=== PATIENT | female | born 2000 | race American Indian/Alaskan Native ===

== ENCOUNTER 2021-06-08 07:56 | Emergency (ER) | payer SELFPAY ==
[2021-06-08] MEDS ORDERED: ACETAMINOPHEN 500 MG TAB PO ONE (09:22)
[2021-06-08] MEDS ORDERED: BENZONATATE 100 MG CAP PO ONE (09:22)
--- NOTE | 2021-06-08 09:25 | Emergency Department Report ---
ED General Adult HPI - General Chief complaint: Dyspnea/Respdistress Stated complaint: COUGH/BACK PAIN Time Seen by Provider: 06/08/21 09:18 Source: patient Mode of arrival: Ambulatory Limitations: No Limitations - History of Present Illness Initial comments: Patient presents secondary to respiratory symptoms. For 4 days, she has had a cough. Cough has been producing a clearish to yellowish phlegm. This morning at 4 AM, she coughed up some blood-tinged sputum. That was the first time she noticed blood in the sputum. Patient has had fevers and chills. She has had muscle aches and body aches. She states that her chest and ribs are sore from coughing. There has been no known sick contact. She had gotten a coronavirus test done yesterday and is waiting on that result. She did get a coronavirus vaccine. She did not get an influenza vaccine. Patient has had no travel out of the country lately. She has not been on antibiotics. Her concern was primarily for the hemoptysis so she came here for evaluation. Severity scale (0 -10): 10 - Related Data Previous Rx's Medication Instructions Recorded Last Taken Type Albuterol Sulfate [Proventil Hfa] 2 puff IH 4XD #1 inh 06/08/21 Unknown Rx Benzonatate [Tessalon Perles] 100 mg PO Q8HR #21 cap 06/08/21 Unknown Rx Ibuprofen [Motrin] 600 mg PO Q8H PRN #20 tablet 06/08/21 Unknown Rx Allergies Allergy/AdvReac Type Severity Reaction Status Date / Time No Known Allergies Allergy Unverified 06/08/21 08:54 ED Review of Systems ROS: Stated complaint: COUGH/BACK PAIN Other details as noted in HPI Comment: All other systems reviewed and negative Constitutional: fever Eyes: denies: eye pain ENT: denies: throat pain Respiratory: see HPI Cardiovascular: as per HPI Endocrine: denies: unexplained weight loss Gastrointestinal: denies: hematemesis Genitourinary: denies: hematuria Musculoskeletal: as per HPI Skin: denies: rash Neurological: headache (With coughing) Hematological/Lymphatic: denies: easy bruising ED Past Medical Hx - Past Medical History Previous Medical History?: No - Family History Family history: no significant - Medications Home Medications: Home Medications Medication Instructions Recorded Confirmed Last Taken Type Albuterol Sulfate [Proventil Hfa] 2 puff IH 4XD #1 inh 06/08/21 Unknown Rx Benzonatate [Tessalon Perles] 100 mg PO Q8HR #21 cap 06/08/21 Unknown Rx Ibuprofen [Motrin] 600 mg PO Q8H PRN #20 tablet 06/08/21 Unknown Rx ED Physical Exam - General Limitations: No Limitations, Other (Pulse ox noted and normal) General appearance: alert, in no apparent distress, other (Nontoxic in appearance) - Head Head exam: Present: atraumatic, normocephalic - Eye Eye exam: Present: normal appearance, PERRL, EOMI. Absent: scleral icterus - ENT ENT exam: Present: normal orophraynx, normal external ear exam - Neck Neck exam: Present: normal inspection. Absent: meningismus - Respiratory Respiratory exam: Present: normal lung sounds bilaterally. Absent: respiratory distress - Cardiovascular Cardiovascular Exam: Present: normal rhythm, tachycardia - GI/Abdominal GI/Abdominal exam: Present: soft. Absent: distended, tenderness - Extremities Exam Extremities exam: Present: normal capillary refill. Absent: calf tenderness - Back Exam Back exam: Absent: CVA tenderness (R), CVA tenderness (L) - Neurological Exam Neurological exam: Present: alert, oriented X3, CN II-XII intact. Absent: motor sensory deficit - Psychiatric Psychiatric exam: Present: normal affect, normal mood - Skin Skin exam: Present: warm, dry ED Course Vital Signs 06/08/21 08:54 Temperature 102.0 F H Pulse Rate 115 H Respiratory 18 Rate Blood Pressure 124/73 [Right] O2 Sat by Pulse 97 Oximetry - Reevaluation(s) Reevaluation #1: 06/08/21 09:22 Chest x-ray was ordered. Old records noted. Reevaluation #2: 06/08/21 10:03 X-ray was noted. Patient was discharged. ED Medical Decision Making - Radiology Data Radiology results: report reviewed - Medical Decision Making Patient presents with upper respiratory symptoms including fever and blood- tinged sputum. She does not have focal pneumonia on x-ray. She does not have risk factor for pulmonary embolism. She does not have any immobility. There is no unilateral leg edema. I do not believe the trace of sputum production that has been blood-tinged would be consistent with PE. She certainly clinically does not have bleeding from other sites that would suggest coagulopathy. Patient does not appear to be septic or toxic. She was treated symptomatically and referred for outpatient evaluation and follow-up. Critical Care Time: No Critical care attestation.: If time is entered above; I have spent that time in minutes in the direct care of this critically ill patient, excluding procedure time. ED Disposition Clinical Impression: Acute URI, Blood-tinged sputum Disposition: HOME / SELF CARE / HOMELESS Is pt being admited?: No Condition: Stable Instructions: Hemoptysis, [id number], Upper Respiratory Infection, Adult, [id number] Additional Instructions: Drink water. Return for problems. Follow-up with your regular doctor or the referral physician for recheck. Isolate at home and quarantine until you have the results of your coronavirus test. Prescriptions: Ibuprofen [Motrin] 600 mg PO Q8H PRN #20 tablet PRN Reason: Pain Albuterol Sulfate [Proventil Hfa] 2 puff IH 4XD #1 inh Benzonatate [Tessalon Perles] 100 mg PO Q8HR #21 cap Referrals: PRIMARY CAREMD [Referring] - 3-5 Days BRITNI KRUSE MD [Staff Physician] - 3-5 Days
--- NOTE | 2021-06-08 09:53 | XRay Report ---
CHEST 2 VIEWS INDICATION / CLINICAL INFORMATION: cough w/blood tinges sputum. COMPARISON: None available. FINDINGS: SUPPORT DEVICES: None. HEART / MEDIASTINUM: No significant abnormality. LUNGS / PLEURA: No significant pulmonary or pleural abnormality. No pneumothorax. ADDITIONAL FINDINGS: No significant additional findings. IMPRESSION: 1. No acute findings. Signer Name: Cam Harper MD Signed: 06/08/2021 9:48 AM Workstation Name: [id number]
[2021-06-08 10:26] VITALS: BP 121/78
== END 2021-06-08 11:14 | disposition home or self-care (01) ==
LOC: ED 07:56
DX: J06.9 Acute upper respiratory infection, unspecified (principal); Z79.899 Other long term (current) drug therapy
CPT/HCPCS: 71046; 99283